=== PATIENT | male | born 1970 | race Two or more races ===

== ENCOUNTER → 2021-02-20 | Outpatient (CLI) | payer OTHER, MEDICAID ==
[~2021-02-20] MED LIST: AMLO-150 PO; OMEP-110 PO
[2021-02-20 08:38] LABS: BASOPHILS % (AUTO) 1 % (0-1); EOSINOPHILS % (AUTO) 1 % (1-7); LYMPHOCYTES % (AUTO) 35 % (22-44); MEAN CORPUSCULAR HEMOGLOBIN 27.4 pg (27.5-34.5); MEAN CORPUSCULAR HGB CONC 33.1 g/dL (33.2-36.2); MEAN PLATELET VOLUME 8.3 fL (7.4-10.4); MONOCYTES % (AUTO) 8 % (2-9); NEUTROPHILS % (AUTO) 56 % (42-75); PLATELET COUNT 268 x10^3/uL (130-400); RED BLOOD COUNT 4.94 x10^6/uL (4.38-5.82); RED CELL DISTRIBUTION WIDTH 17.7 % (9.4-14.8)
[2021-02-20 08:45] LABS: ALANINE AMINOTRANSFERASE 89 U/L (12-78); ALBUMIN 3.7 g/dL (3.4-5.0); ANION GAP 6 mmol/L (5-15); CALCIUM 8.8 mg/dL (8.5-10.1); CHLORIDE 112 mmol/L (98-107)
[2021-02-20 08:49] LABS: ALKALINE PHOSPHATASE 116 U/L (45-117); BILIRUBIN,TOTAL 0.3 mg/dL (0.2-1.0); CREATININE 0.98 mg/dL (0.7-1.3); TOTAL PROTEIN 7.6 g/dL (6.4-8.2)
== END | disposition home or self-care (01) ==
LOC: STAR 07:30
PROVIDERS: ATTEND Surgery
DX: Z01.818 Encounter for other preprocedural examination (principal)
CPT/HCPCS: 36415; 80053; 82378; 85025

== ENCOUNTER 2021-02-25 10:05 | Day surgery (SDC) | payer OTHER, MEDICAID ==
[~2021-02-25] VITALS: Ht 172.7 cm; Wt 109.3 kg
[2021-02-25 10:26] VITALS: BP 152/104
[2021-02-25] MEDS ORDERED: CHLORHEXIDINE 15 ML UDC PO ONE (10:30)
[2021-02-25] MEDS ORDERED: LACTATED RINGERS 1,000 ML IV SCH (10:30)
[2021-02-25] MEDS ORDERED: FENTANYL PF 250 MCG/5ML ONE (11:42)
[2021-02-25] MEDS ORDERED: MIDAZOLAM 1 MG/ML, 2ML ONE (11:42)
[2021-02-25] MEDS ORDERED: ONDANSETRON 2MG/ML, 2ML ONE ×2 (11:43→12:15)
[2021-02-25] MEDS ORDERED: DEXAMETHASONE 4 MG/ML, 1ML ONE ×2 (11:43→12:15)
[2021-02-25] MEDS ORDERED: BUPIVACAINE/PF 0.5% ONE (11:43)
[2021-02-25] MEDS ORDERED: EPINEPHRINE 1 MG/ML, 1ML ONE (11:43)
[2021-02-25] MEDS ORDERED: CEFOTETAN 2 GM ONE (11:43)
[2021-02-25] MEDS ORDERED: ROCURONIUM 10MG/ML,5ML ONE (11:49)
[2021-02-25] MEDS ORDERED: SUCCINYLCHOLINE 20 MG/ML, 10ML ONE (11:50)
[2021-02-25] MEDS ORDERED: PROPOFOL 10 MG/ML, 20ML ONE (11:50)
[2021-02-25] MEDS ORDERED: OXYC1TAB12 PO (12:31)
[2021-02-25] MEDS ORDERED: hydrALAzine 20 MG/ML, 1ML IV PRN (13:00)
[2021-02-25] MEDS ORDERED: MEPERIDINE/PF 25MG/0.5ML IVPush PRN (13:00)
[2021-02-25] MEDS ORDERED: EPHEDRINE 50 MG/ML, 1ML IVPush PRN (13:00)
[2021-02-25] MEDS ORDERED: DIAZEPAM 5 MG/ML, 2ML IVPush PRN (13:00)
[2021-02-25] MEDS ORDERED: OXYcodone 5 MG/5 ML ORAL.SOL UDC PO PRN (13:00)
[2021-02-25] MEDS ORDERED: LABETALOL 5MG/ML, 20ML IV PRN (13:00)
[2021-02-25] MEDS ORDERED: HYDROmorphone 1 MG/ML, 1ML INJ IVPush PRN (13:00)
[2021-02-25] MEDS ORDERED: DIPHENHYDRAMINE 50 MG/ML, 1ML IVPush PRN ×2 (13:00)
[2021-02-25] MEDS ORDERED: PROMETHAZINE 25 MG/ML, 1ML IVPush PRN (13:00)
[2021-02-25] MEDS ORDERED: PROMETHAZINE 12.5 MG SUPP PR PRN (13:00)
[2021-02-25] MEDS ORDERED: ACETAMINOPHEN 325 MG TABLET PO PRN (13:00)
[2021-02-25] MEDS ORDERED: MIDAZOLAM 1 MG/ML, 2ML IV PRN (13:00)
[2021-02-25] MEDS ORDERED: LORazepam 2 MG/ML, 1ML IVPush PRN (13:00)
[2021-02-25] MEDS ORDERED: ONDANSETRON 2MG/ML, 2ML IVPush PRN (13:00)
[2021-02-25] MEDS ORDERED: ALBUTEROL SULFATE 2.5 MG/3 ML NPPB PRN (13:00)
[2021-02-25] MEDS ORDERED: OXYcodone 5 MG/5 ML ORAL.SOL UDC ONE ×2 (13:18→13:24)
[2021-02-25] MEDS ORDERED: FENTANYL PF 100 MCG/2ML ONE (13:18)
[2021-02-25] MEDS: FENTANYL PF 100 MCG/2ML IV PRN ×2 (13:20→13:25)
== END 2021-02-25 14:37 | disposition home or self-care (01) ==
LOC: OUT 10:05
PROVIDERS: ATTEND Surgery
DX: K62.1 Rectal polyp (principal); K57.30 Diverticulosis of large intestine without perforation or abscess without bleeding; K21.9 Gastro-esophageal reflux disease without esophagitis; I10 Essential (primary) hypertension; Z79.899 Other long term (current) drug therapy
CPT/HCPCS: 0184T; 88305; J0171; J0330; J1100; J2250; J2405; J2704; J3010; J7120